=== PATIENT | female | born 2000 | race Caucasian/White ===

== ENCOUNTER 2020-12-23 15:03 | Emergency (ER) | payer MEDICAID, OTHER ==
[~2020-12-23] VITALS: Ht 162.6 cm; Wt 65.8 kg
[2020-12-23 15:13] VITALS: BP 121/73
[2020-12-23 16:37] LABS: Urine Bacteria NONE SEEN /hpf (None Seen); Urine Blood Negative /uL (Negative); Urine Mucus FEW (None Seen); Urine Specific Gravity 1.025 (1.001-1.035); Urine WBC 4 /hpf (0 - 5)
== END 2020-12-23 18:00 | disposition home or self-care (01) ==
LOC: ER 15:03
DX: O44.22 Partial placenta previa NOS or without hemorrhage, second trimester (principal); S80.01XA Contusion of right knee, initial encounter; Z3A.17 17 weeks gestation of pregnancy; W01.0XXA Fall on same level from slipping, tripping and stumbling without subsequent striking against object, initial encounter; Y93.89 Activity, other specified; Y92.89 Other specified places as the place of occurrence of the external cause; Y99.8 Other external cause status
CPT/HCPCS: 76805; 81001; 81025

== ENCOUNTER 2020-12-31 20:59 | Emergency (ER) | payer MEDICAID, OTHER ==
[~2020-12-31] VITALS: Ht 162.6 cm; Wt 71.2 kg
[2020-12-31 21:03] VITALS: BP 113/75
[2021-01-01 02:10] LABS: Urine Bacteria NONE SEEN /hpf (None Seen); Urine Blood Negative /uL (Negative); Urine Mucus FEW (None Seen); Urine Specific Gravity 1.013 (1.001-1.035); Urine WBC 5 /hpf (0 - 5)
== END 2021-01-01 02:48 | disposition home or self-care (01) ==
LOC: ER 20:59
DX: O23.42 Unspecified infection of urinary tract in pregnancy, second trimester (principal); Z3A.18 18 weeks gestation of pregnancy
CPT/HCPCS: 36415; 76805; 81001; 84702

== ENCOUNTER 2021-04-28 09:07 | Observation (INO) | payer MEDICAID ==
[2021-04-28] MEDS ORDERED: PREN-96 PO (10:38)
== END 2021-04-28 11:09 | disposition home or self-care (01) ==
LOC: LDRP 09:07
PROVIDERS: ADMIT Obstetrics & Gynecology; ATTEND Obstetrics & Gynecology
DX: O36.5930 Maternal care for other known or suspected poor fetal growth, third trimester, not applicable or unspecified (principal); Z3A.35 35 weeks gestation of pregnancy; Z87.891 Personal history of nicotine dependence; Z91.81 History of falling
CPT/HCPCS: 59025; 76818; 81002; G0378

== ENCOUNTER 2021-05-03 13:15 | Observation (INO) | payer MEDICAID ==
[~2021-05-03 13:15] MED LIST: PREN-96 PO
== END 2021-05-03 15:40 | disposition home or self-care (01) ==
LOC: LDRP 13:15
PROVIDERS: ADMIT Obstetrics & Gynecology; ATTEND Obstetrics & Gynecology
DX: O36.5930 Maternal care for other known or suspected poor fetal growth, third trimester, not applicable or unspecified (principal); O26.893 Other specified pregnancy related conditions, third trimester; N89.8 Other specified noninflammatory disorders of vagina; Z3A.35 35 weeks gestation of pregnancy
CPT/HCPCS: 59025; 76818; 81002; G0378

== ENCOUNTER 2021-05-10 07:49 | Observation (INO) | payer MEDICAID | END 2021-05-10 14:28 | disposition home or self-care (01) | LOC: LDRP 13:24 | PROVIDERS: ADMIT Obstetrics & Gynecology; ATTEND Obstetrics & Gynecology | DX: O36.5930 Maternal care for other known or suspected poor fetal growth, third trimester, not applicable or unspecified (principal); O99.323 Drug use complicating pregnancy, third trimester; F12.90 Cannabis use, unspecified, uncomplicated; Z3A.36 36 weeks gestation of pregnancy; Z87.891 Personal history of nicotine dependence | CPT/HCPCS: 59025; 76818; 81002; 94760; G0378; G0379 ==

== ENCOUNTER 2021-05-17 10:22 | Observation (INO) | payer MEDICAID | END 2021-05-17 15:09 | disposition home or self-care (01) | LOC: LDRP 13:26 | PROVIDERS: ADMIT Obstetrics & Gynecology; ATTEND Obstetrics & Gynecology | DX: O36.5930 Maternal care for other known or suspected poor fetal growth, third trimester, not applicable or unspecified (principal); Z3A.38 38 weeks gestation of pregnancy | CPT/HCPCS: 59025; 76818; 81002; 94760; G0378; G0379 ==

== ENCOUNTER 2021-05-20 10:50 | Inpatient (IN) | payer MEDICAID ==
[~2021-05-20] VITALS: Ht 162.6 cm; Wt 72.6 kg
[2021-05-20] MEDS ORDERED: DERMOPLAST 60ML BOTTLE TOP PRN (13:15)
[2021-05-20] MEDS ORDERED: PROMETHAZINE HCL 25 MG/ML 1ML IV PRN (13:15)
[2021-05-20] MEDS ORDERED: PHISODERM TOP SOLN 240ML BTL TOP PRN (13:15)
[2021-05-20] MEDS ORDERED: LIDOCAINE 2%HCL (LOCAL ANESTH.) INJ 20ML MDV IJ PRN (13:15)
[2021-05-20] MEDS ORDERED: BUTORPHANOL TARTRATE 2 MG/1 ML VIAL IV PRN ×2 (13:15)
[2021-05-20] MEDS ORDERED: WITCH HAZEL-GLYCERIN PAD TOP PRN (13:15)
[2021-05-20] MEDS ORDERED: PENICILLIN G POT 5MIL/D5 50ML 50 ML IV ONE (13:15)
[2021-05-20] MEDS ORDERED: LACT. RINGERS/OXYTOCIN 20UNITS 500 ML IV PRN ×2 (13:15)
[2021-05-20] MEDS: LACTATED RINGER'S 1,000 ML IV SCH ×2 (13:52→17:39)
[2021-05-20 13:53] LABS: Basophils # (auto) 0 10 ^3/uL (0-0.2); Basophils % (auto) 0.3 % (0.0-2.0); Eosinophils # (auto) 0 10 ^3/uL (0-0.8); Eosinophils % (auto) 0.5 % (0.0-7.0); Hematocrit 35.3 % (36.0-46.0); Hemoglobin 12.6 g/dL (12.2-16.2); Lymphocytes # (auto) 1.9 10 ^3/uL (0.4-5.4); Lymphocytes % (auto) 20.5 % (10.0-50.0); Mean Corpuscular Hemoglobin 34.2 pg (28.0-32.0); Mean Corpuscular Hgb Conc. 35.6 g/dL (32.0-36.0); Mean Corpuscular Volume 96.1 fL (80.0-100.0); Monocytes # (auto) 0.8 10 ^3/uL (0-1.3); Monocytes % (auto) 8.9 % (0.0-12.0); Neutrophils # (auto) 6.6 10 ^3/uL (1.6-8.6); Neutrophils % (auto) 69.8 % (37.0-80.0); Nucleated Red Blood Cells % 0.1 %; Red Blood Cells 3.67 10^6/uL (4.0-5.20); Red Cell Distribution Width 13.1 % (11.8-14.3); White Blood Cell 9.5 10^3/uL (4.4-10.8)
[2021-05-20 14:07] LABS: INR 0.91 (0.9-1.15); Partial Thromboplastin Time 23.8 sec (23.6-33.0)
[2021-05-20 14:27] LABS: Urine Bacteria FEW /hpf (None Seen); Urine Blood Negative /uL (Negative); Urine Mucus FEW (None Seen); Urine Specific Gravity 1.027 (1.001-1.035); Urine WBC 423 /hpf (0 - 5)
[2021-05-20 14:39] LABS: Potassium 3.9 mmol/L (3.5-5.1)
[2021-05-20 14:50] LABS: Amphetamine Screen, Urine NEGATIVE (NEGATIVE); Barbiturate Scree,Urine NEGATIVE (NEGATIVE); Benzodiazephine Screen, Urine NEGATIVE (NEGATIVE); Cannabinoid Screen, Urine NEGATIVE (NEGATIVE); Cocaine Screen, Urine NEGATIVE (NEGATIVE); Opiate Scree,Urine NEGATIVE (NEGATIVE); Phencyclidine Screen, Urine NEGATIVE (NEGATIVE)
[2021-05-20 14:55] LABS: Albumin 2.5 g/dL (3.4-5.0); BUN/Creatinine Ratio 19.3; Bilirubin, Total 0.1 mg/dL (0.2-1.0); Calcium 8.9 mg/dL (8.5-10.1); Total Protein 6.4 g/dL (6.4-8.2)
[2021-05-20] MEDS: miSOPROStol 50 MCG per PRE-CUT 1/2 TAB PO PRN ×2 (16:27→20:29)
[2021-05-20] MEDS ORDERED: PENICILLIN G POTASSIUM 2,500,000 UNITS in D5W 5% 50 ML IV SCH (17:15)
[2021-05-20 19:09] LABS: Protein, Urine 61.9 mg/dL (0.0-11.9)
[2021-05-21] MEDS: LACTATED RINGER'S 1,000 ML IV SCH ×2 (00:07→14:48)
[2021-05-21] MEDS: miSOPROStol 50 MCG per PRE-CUT 1/2 TAB PO PRN ×2 (00:38→04:39)
[2021-05-21] MEDS ORDERED: PROMETHAZINE HCL 25 MG/ML 1ML IV PRN (02:15)
[2021-05-21] MEDS ORDERED: hydrALAZINE HCL 20 MG/ML VL IV PRN ×3 (05:00→11:15)
[2021-05-21 08:06] LABS: RPR Non Reactive (Non Reactive)
[2021-05-21] MEDS ORDERED: ePHEDrine SULFATE 50 MG/ML AMP IV ONE ×2 (08:45→11:15)
[2021-05-21] MEDS ORDERED: LIDOCAINE HCL 2 %PF INJ 10ML AMP IJ ONE (08:45)
[2021-05-21] MEDS ORDERED: fentaNYL CITRATE 100 MCG/2 ML VL IV ONE (08:45)
[2021-05-21] MEDS ORDERED: NALOXONE HCL 0.4 MG/ML VIAL IV ONE ×2 (08:45→11:15)
[2021-05-21] MEDS ORDERED: ROPIVACAINE HCL 200 ML EPI SCH ×2 (08:45→11:15)
[2021-05-21] MEDS ORDERED: LABETALOL HCL 5 MG/ML 4ML SYRINGE IV PRN (11:15)
[2021-05-21] MEDS ORDERED: MIDAZOLAM HCL 2MG/2ML 2ml VIAL (1mg/ml) IV PRN (11:15)
[2021-05-21] MEDS ORDERED: LACTATED RINGER'S 500 ML IV ONE (11:15)
[2021-05-21] MEDS ORDERED: SODIUM CHLORIDE 0.9% 500 ML IV PRN (11:15)
[2021-05-21] MEDS ORDERED: ONDANSETRON HCL 4 MG/2 ML VIAL IV PRN (11:15)
[2021-05-21] MEDS ORDERED: ACETAMINOPHEN 325 MG TAB PO PRN (19:30)
[2021-05-21] MEDS ORDERED: ceFAZolin 1GM/50ML 50 ML IV SCH (19:30)
[2021-05-21] MEDS ORDERED: LIDOCAINE 2%HCL (LOCAL ANESTH.) INJ 20ML MDV ONE (22:14)
[2021-05-21] MEDS ORDERED: LIDOCAINE 2%HCL (LOCAL ANESTH.) INJ 20ML MDV IJ PRN (22:45)
[2021-05-22] VITALS (7 sets, daily range): BP systolic 106–146; BP diastolic 57–80
[2021-05-22] MEDS ORDERED: ceFAZolin 1GM/50ML 50 ML IV SCH (03:30)
[2021-05-22] MEDS: IBUPROFEN 600 MG TAB PO PRN ×3 (04:02→19:07)
[2021-05-22] MEDS: ceFAZolin 1GM/50ML 50 ML IV SCH ×2 (11:30→19:06)
[2021-05-23] MEDS: ceFAZolin 1GM/50ML 50 ML IV SCH ×2 (02:52→11:30)
[2021-05-23] MEDS: IBUPROFEN 600 MG TAB PO PRN (02:52)
[2021-05-23 03:00] VITALS: BP 106/56
[2021-05-23 07:12] VITALS: BP 123/69
[2021-05-23 11:18] VITALS: BP 130/80
== END 2021-05-23 14:10 | disposition home or self-care (01) | DRG 560 ==
LOC: LDRP 10:50 → OBSVTOIN 13:00 → LDRP 13:01
PROVIDERS: ADMIT Obstetrics & Gynecology; ATTEND Obstetrics & Gynecology
PROC: 10D07Z6 Extraction of Products of Conception, Vacuum, Via Natural or Artificial Opening (ICD-10-PCS; principal; 2021-05-22)
PROC: 0KQM0ZZ Repair Perineum Muscle, Open Approach (ICD-10-PCS; 2021-05-22)
PROC: 3E0R3BZ Introduction of Anesthetic Agent into Spinal Canal, Percutaneous Approach (ICD-10-PCS; 2021-05-22)
PROC: 00HU33Z Insertion of Infusion Device into Spinal Canal, Percutaneous Approach (ICD-10-PCS; 2021-05-22)
DX: O36.5930 Maternal care for other known or suspected poor fetal growth, third trimester, not applicable or unspecified (principal); Z37.0 Single live birth; O71.4 Obstetric high vaginal laceration alone; Z20.822 Contact with and (suspected) exposure to COVID-19; Z3A.38 38 weeks gestation of pregnancy
CPT/HCPCS: 36415; 59025; 59200; 59409; 62282; 76818; 80053; 80307; 81001; 81002; 82570; 84156; 84550; 85025; 85610; 85730; 86592; 86850; 86900; 86901; 87426; 94760; 94762; 96360; 96361; 96374; 96375; G0378; J0690; J2590; J7060

== ENCOUNTER 2025-05-03 08:57 | Emergency (ER) | payer MEDICAID ==
[~2025-05-03] VITALS: Ht 160 cm; Wt 109.5 kg
--- NOTE | 2025-05-03 09:14 | ED.PDOC ---
History of Present Illness HPI Comments 24-year-old female presents to the ER with no prior medical history associated with a chief complaint of an abscess. Patient reports that she has not inflamed in painful abscess on the tailbone area for the past few days. Per patient states that she has a history of with the abscess for a while. Patient states that she has had this abscess on and off for approximately 12 years. She has never had antibiotics or has never been treated for it. Patient notes that the abscess has popped in his now bleeding. Denies chills, fever, N/V/D, SOB, CP. No other associated symptoms, modifiers, recent injuries or sick contacts present at this time. Chief Complaint: Abscess Time Seen by MD: 09:15 Primary Care Provider: ELZA Reviewed Notes: Nurses Notes, Medications, Allergies Allergies: Coded Allergies: NO KNOWN ALLERGIES (Unverified , 02/07/11) Home Meds Reported Medications Vit W/ Ferrous Fumara ( One Daily) Daily Tab, 1 TAB PO DAILY, #90 TAB 3 Refills 04/28/21 Information Source: Patient Mode of Arrival: Ambulatory Severity: Moderate Timing: Came on: Suddenly Duration: Since onset Prehospital treatment: None Past Medical History PAST MEDICAL HISTORY: Denies Surgical History: Denies all surgeries HIGH PRESSURE FIRER History: Denies all HIGH PRESSURE FIRER Hx Family History Family History: Reviewed,noncontributory to illness, Unknown Social History Smoker: Non-Smoker Alcohol: Denies ETOH Use Drugs: Denies Drug Use Lives In: Home Constitutional: denies: chills, diaphoresis, fatigue, fever, malaise, sweats, weakness, others EENTM: denies: blurred vision, double vision, ear bleeding, ear discharge, ear drainage, ear pain, ear ringing, eye pain, eye redness, hearing loss, mouth pain, mouth swelling, nasal discharge, nose bleeding, nose congestion, nose pain, photophobia, tearing, throat pain, throat swelling, voice changes, others Respiratory: denies: cough, hemoptysis, orthopnea, SOB at rest, shortness of breath, SOB with excertion, stridor, wheezing, others Cardiovascular: denies: chest pain, dizzy spells, diaphoresis, Dyspnea on ex ertion, edema, irregular heart beat, left arm pain, lightheadedness, palpitations, PND, syncope, others Gastrointestinal: denies: abdomen distended, abdominal pain, blood streaked bowels, constipated, diarrhea, dysphagia, difficulty swallowing, hematemesis, melena, nausea, poor appetite, poor fluid intake, rectal bleeding, rectal pain, vomiting, others Genitourinary: denies: abnormal vagina bleeding, burning, dyspareunia, dysuria, flank pain, frequency, hematuria, incontinence, pain, , vagina discharge, urgency, others Neurological: denies: dizziness, fainting, headache, left sided numbness, left sided weakness, numbness, paresthesia, pre-existing deficit, right sided numbness, right sided weakness, seizure, speech problems, tingling, tremors, weakness, others Musculoskeletal: denies: back pain, gout, joint pain, joint swelling, muscle pain, muscle stiffness, neck pain, others Integumetry: reports: others (Inflamed and painful abscess to the tailbone ); denies: bruises, change in color, change in hair/nails, dryness, laceration, lesions, lumps, rash, wounds Allergic/Immunocompromised: denies: Difficulty Healing, Frequent Infections, Hives, Itching, others Hematologic/Lymphatic: denies: anemia, blood clots, easy bleeding, easy bruising, swollen glands, others Endocrine: denies: excessive hunger, excessive sweating, excessive thirst, excessive urination, flushing, intolerance to cold, intolerance to heat, unexplained weight gain, unexplained weight loss, others Psychiatric: denies: anxiety, bipolar disorder, depression, hopeless, panic disorder, schizophrenia, sleepless, suicidal, others All Other Systems: Reviewed and Negative Physical Exam General Appearance: No Apparent Distress, Normal HEENT: Normal ENT Inspection, Pharynx Normal, TMs Normal Neck: Full Range of Motion, Non-Tender, Normal, Normal Inspection Respiratory: Chest Non-Tender, Lungs Clear, No Accessory Muscle Use, No Respiratory Distress, Normal Breath Sounds Cardiovascular: No Edema, No JVD, No Murmur, No Gallop, Normal Peripheral Pulses, Regular Rate/Rhythm Breast Exam: Deferred Gastrointestinal: No Organomegaly, Non Tender, No Pulsatile Mass, Normal Bowel Sounds, Soft Genitalia: Deferred Pelvic: Deferred Rectal: Deferred Extremities: No calf tenderness, Normal capillary refill, Normal inspection, Normal range of motion, Non-tender, No pedal edema Musculoskeletal : Apperance: Normal Neurologic: Alert, 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 Drainage) Lymphatic: No Adenopathy Was a procedure done? Was a procedure done?: No Differential Dx Considerations may include: Cellulitis X-Ray, Labs, Meds, VS Vital Signs Date Time Temp Pulse Resp B/P (MAP) Pulse Ox O2 Delivery O2 Flow Rate FiO2 05/03/25 08:59 98.3 90 18 134/62 98 98.3 X-Ray, Labs, Meds, VS Comment Patient seen and examined by me. Patient has an abscess it has been on and off for approximately 12 years. Patient states she has never been treated for it or never had it examined because of its location and she was embarrassed. At this time the abscesses too early to open. I will put her on oral antibiotics. I have instructed her to continue hot packs or being in the bathtub to help it drain. If it starts to soften and starts to drain she may return.. Time of 1ST Reevaluation: 09:45 Reevaluation 1ST: Unchanged Time of 2ND Reevaluation: 09:30 Reevaluation 2ND: Unchanged Patient Education/Counseling: Diagnosis, Treatment, Prognosis Family Education/Counseling: No Family Present SEPSIS Sepsis Screen Date sepsis recognized/suspect: May 03, 2025 Time Sepsis recognized/suspect: 0859 Recent Procedure: No On Antibiotic Therapy: No Respiratory Rate >20: No Heart Rate >90: No Temp<36 C (96.8 F) or >38.3 C: No SBP <90 or MAP <65 mmHG: No New Acute Mental Status Change: No Is the patient on CPAP, BIPAP,: No Vital Signs Date Time Temp Pulse Resp B/P (MAP) Pulse Ox O2 Delivery O2 Flow Rate FiO2 05/03/25 08:59 98.3 90 18 134/62 98 98.3 Departure 1 Departure Time of Disposition: 09:30 Impression: Primary Impression: Abscess Disposition: 01 HOME / SELF CARE / HOMELESS Condition: Good Additional Instructions: Start the antibiotics today and take every dose until completely finished Continue to use either a bathtub or hot packs to the area to help this it soften and possibly drain e-Prescriptions Ibuprofen Micronized (Ibuprofen) 600 Mg Tab 600 MG PO Q6HPRN PRN for 5 Days, #20 TAB Prov: SILVIANO CONTRERAS 05/03/25 Sulfamethoxazole W/Trimethopri (Bactrim Ds Tablet) 1 Tab Tb 1 TAB PO BID for 7 Days, #14 TAB Prov: SILVIANO CONTRERAS 05/03/25 Discharged With: Self Critical Care Note Critical Care Time?: No Stability Stability form required: No I personally scribed for ER ([email or web address]) on 05/03/25 at 09:14. Electronically submitted by Jacob Gallego ([email or web address]). ER May 03, 2025 09:14 SILVIANO CONTRERAS May 03, 2025 09:32
[2025-05-03 09:31] VITALS: BP 136/62; PULSE 88; RESP 16; TEMP 98.3; O2SAT 98
[2025-05-03] MEDS ORDERED: IBUP1TAB5 PO (09:32)
[2025-05-03] MEDS ORDERED: BACDST PO (09:32)
== END 2025-05-03 09:34 | disposition home or self-care (01) ==
LOC: ER 08:57
DX: L02.212 Cutaneous abscess of back [any part, except buttock and flank] (principal)